=== PATIENT | male | born 1985 | race Caucasian/White ===

== ENCOUNTER 2021-04-09 11:26 | Emergency (ER) | payer BC ==
[2021-04-09 11:37] VITALS: BP 150/86; PULSE 87
--- NOTE | 2021-04-09 11:37 | EDM.PDOC ---
ED HPI GENERAL MEDICAL PROBLEM - General Chief Complaint: General Stated Complaint: cold symptoms, heavy chest Time Seen by Provider: 04/09/21 11:28 Source of Information: Reports: Patient History Limitations: Reports: No Limitations - History of Present Illness INITIAL COMMENTS - FREE TEXT/NARRATIVE: This is a 35-year-old male patient presents to emergency department with compl aints of shortness of breath with exertion, fever, and body aches. He reports that he had Covid about a month ago. States that current symptoms began last . Came in today because he feels that the shortness of breath has gradually worsened when he is exerting himself. States that he feels winded when he is up moving around. Denies taking any [id number] medication. Does have associated cough and that he believes it is making his throat a little sore. Patient had some concerns with very worsened breathing with exertion that he may possibly have a pneumonia. Denies any history of respiratory concerns. Denies nausea or vomiting. Onset: Gradual Onset Date: 04/05/21 Severity: Mild Improves with: Reports: None Worsens with: Reports: None Associated Symptoms: Reports: No Other Symptoms - Related Data Allergies Allergy/AdvReac Type Severity Reaction Status Date / Time No Known Allergies Allergy Verified 04/09/21 11:28 Home Meds: Home Meds . [No Known Home Meds] 08/15/15 [History] Past Medical History - Past Health History Medical/Surgical History: Denies Medical/Surgical History Social & Family History - Family History Family Medical History: No Pertinent Family History - Living Situation & Occupation Living situation: Reports: , with Family Occupation: Employed ED ROS GENERAL - Review of Systems Review Of Systems: See Below Constitutional: Reports: Fever HEENT: Denies: Sinus Problem Respiratory: Reports: Shortness of Breath (with exertion), Cough Cardiovascular: Reports: Dyspnea on Exertion Endocrine: Reports: No Symptoms GI/Abdominal: Denies: Diarrhea, Nausea, Vomiting : Reports: No Symptoms Musculoskeletal: Reports: Other (Body aches) Skin: Reports: No Symptoms Neurological: Reports: No Symptoms Psychiatric: Reports: No Symptoms Hematologic/Lymphatic: Reports: No Symptoms Immunologic: Reports: No Symptoms ED EXAM, GENERAL - Physical Exam Exam: See Below Exam Limited By: No Limitations General Appearance: Alert, WD/WN, Mild Distress Ears: Normal External Exam, Hearing Grossly Normal Nose: Normal Inspection, Normal Mucosa Throat/Mouth: Normal Inspection, Normal Lips, Normal Oropharynx, Normal Voice, No Airway Compromise Head: Atraumatic, Normocephalic Neck: Normal Inspection, Supple, Non-Tender Respiratory/Chest: No Respiratory Distress, Lungs Clear, Normal Breath Sounds Cardiovascular: Regular Rate, Rhythm. No: No Gallop, No Murmur, No Rub GI/Abdominal: Soft, Non-Tender (Male) Exam: Deferred Rectal (Males) Exam: Deferred Neurological: Alert, Oriented, Normal Cognition, Normal Gait Psychiatric: Normal Affect, Normal Mood Skin Exam: Warm, Dry, Intact Lymphatic: No Adenopathy Course - Orders/Labs/Meds Orders: Active Orders 24 hr Category Date Time Status INFLUENZA A+B AG SCREEN [RM] Stat Lab 04/09/21 11:28 Ordered Isolation [COMM] Routine Oth 04/09/21 11:29 Ordered - Re-Assessments/Exams Free Text/Narrative Re-Assessment/Exam: Mr. Coleman is a 35-year-old male that presented to the emergency department today with flulike symptoms. Patient feels short of breath with exertion. Has had intermittent fever since onset of symptoms about 5 days ago. Patient had stated that he had Covid about a month ago. Testing done for influenza and patient is negative for influenza A or B. Patient's lung sounds clear bilaterally and no indication to complete any imaging or further lab work. Plan to discharge patient home. Patient may take Tylenol or ibuprofen for fever or discomfort. Discussed with patient that testing is not always 100% and that he most likely has a viral respiratory illness. Symptoms could possibly due to having Covid within the last month. Patient may try some [id number] cold and flu remedies as those may be helpful for symptom management. Instructed to stay hydrated by drinking plenty of fluids. Patient to follow-up at clinic later this week if symptoms are not improving. Was informed to call or return if symptoms are worsening or if he has any questions. Departure - Departure Time of Disposition: 12:04 Disposition: Home, Self-Care 01 Condition: Fair Clinical Impression: Viral respiratory illness - Discharge Information *PRESCRIPTION DRUG MONITORING PROGRAM REVIEWED*: Not Applicable *COPY OF PRESCRIPTION DRUG MONITORING REPORT IN PATIENT AJ: Not Applicable Additional Instructions: 1. Likely have a viral respiratory illness. 2. If symptoms are not improving by the end of the week follow-up with your primary care provider. 3. Stay hydrated by drinking plenty of fluids. 4. May take Tylenol and ibuprofen for fever or discomfort. 5. May try [id number] cold and flu remedies which may help with cough and thin secretions. 6. Call or return if symptoms are becoming much worse or if you have any questions.. - My Orders Last 24 Hours: My Active Orders 04/09/21 11:28 INFLUENZA A+B AG SCREEN [RM] Stat 04/09/21 11:29 Isolation [COMM] Routine - Assessment/Plan Last 24 Hours: My Active Orders 04/09/21 11:28 INFLUENZA A+B AG SCREEN [RM] Stat 04/09/21 11:29 Isolation [COMM] Routine
== END 2021-04-09 12:15 | disposition home or self-care (01) ==
LOC: CC.ED 11:26
DX: B34.9 Viral infection, unspecified (principal); Z20.822 Contact with and (suspected) exposure to COVID-19
CPT/HCPCS: 87804; 99283